=== PATIENT | female | born 1995 | race Caucasian/White ===

== ENCOUNTER 2017-11-10 21:04 | Emergency (ER) | payer OTHER ==
[2017-11-10 21:20] VITALS: TEMP 98.2; BMI 24.4
--- NOTE | 2017-11-10 21:22 | PDOC ---
Rapid Medical Evaluation Chief Complaint: Substance Abuse Time Seen by Provider: 11/10/17 21:16 Medical Evaluation: 11/10/17 21:17 c/o smoking crack cocaine on 11/04/2017 c/o feeling shaky since smoking. + chest pain patient seen at [facility] and [facility] PE: patient alert ox3/ A: chest pain P: cbc cmp troponin d-dimer patient to the ER for further management of care.
[2017-11-10 21:37] LABS: BASO % 0.7 % (0-2.0); EOS % 0.7 % (0-4.5); HEMOGLOBIN 12.9 GM/dL (10.7-15.3); LYMPH % 34.6 % (8-40); MCH 29.3 pg (25.7-33.7); MCHC 33.1 g/dl (32.0-36.0); MEAN CELL VOLUME 88.4 fl (80-96); MEAN PLT VOLUME 7.9 fl (7.5-11.1); MONO % 6.2 % (3.8-10.2); NEUT % 57.8 % (42.8-82.8); PLATELET COUNT 342 K/MM3 (134-434); RBC 4.41 M/mm3 (3.60-5.2); RDW 14.4 % (11.6-15.6); WHITE BLOOD COUNT 9.2 K/mm3 (4.0-10.0)
[2017-11-10 21:57] LABS: URINE APPEARANCE SLCLOUDY; URINE BILIRUBIN NEGATIVE (<2.0 mg/dL); URINE BLOOD NEGATIVE (NEGATIVE); URINE COLOR LTYELLOW; URINE GLUCOSE (UA) NEGATIVE (NEGATIVE); URINE KETONE NEGATIVE (NEGATIVE); URINE LEUK ESTERASE TRACE (NEGATIVE); URINE NITRITE NEGATIVE (NEGATIVE); URINE PROTEIN NEGATIVE (NEGATIVE); URINE UROBILINOGEN NEGATIVE mg/dL (0.2-1.0)
[2017-11-10 22:08] LABS: COCAINE, UR NEGATIVE ng/ml (CUTOFF=300); METHADONE, UR NEGATIVE ng/ml (CUTOFF=300); OPIATES, URI NEGATIVE ng/ml (CUTOFF=300); PHENCYCLIDINE,URINE NEGATIVE ng/ml (CUTOFF=25); URINE AMPHETAMINES NEGATIVE ng/ml (CUTOFF=500); URINE BARBITURATES NEGATIVE ng/ml (CUTOFF=200); URINE BENZODIAZEPINES NEGATIVE ng/ml (CUTOFF=200)
[2017-11-10 22:12] LABS: ALBUMIN 4.3 g/dl (3.4-5.0); ANION GAP 9 (8-16); BILIRUBIN,TOTAL 0.3 mg/dL (0.2-1.0); BLOOD UREA NITROGEN 12 mg/dL (7-18); CHLORIDE 102 mmol/L (98-107); CO2 26 mmol/L (21-32); CREATININE 0.9 mg/dL (0.55-1.02); GLUCOSE,RANDOM 87 mg/dL (74-106); POTASSIUM 3.8 mmol/L (3.5-5.1); SGOT/AST 19 U/L (15-37); SGPT/ALT 20 U/L (12-78); SODIUM 137 mmol/L (136-145); TOT PROT 8.2 g/dl (6.4-8.2)
[2017-11-10 22:14] LABS: ALK PHOS 92 U/L (45-117)
[2017-11-10] MEDS ORDERED: LORazepam 1 MG TABLET PO ONE (22:18)
[2017-11-10 22:34] LABS: EPI CELLS MODERATE /HPF (FEW); URINE BACTERIA RARE /hpf (NONE SEEN); URINE MUCUS RARE
[2017-11-10] MEDS ORDERED: LORazepam 0.5 MG TABLET ONE (22:39)
--- NOTE | 2017-11-10 23:17 | PDOC ---
Attending Attestation - Resident Resident Name: Hugo Trejo - ED Attending Attestation I have performed the following: I have examined & evaluated the patient, The case was reviewed & discussed with the resident, I agree w/resident's findings & plan, Exceptions are as noted - HPI HPI: 11/10/17 23:13 "The patient is a 22 year old female, with a significant past medical history of schizophrenia, polysubstance abuse, who presents to the emergency department with, chest heaviness, SOB and palpitations. The patient states that she smoked crack cocaine on 11/04, approximately 6 days ago. Immediately after, she began to feel a heaviness in her chest and shortness of breath. She has not smoked or used anything since then but reports intermittent recurrence of these symptoms. She denies F/C. Denies cough. Denies leg swelling or recent travel. Pt was previously evaluated at [facility] for the same symptoms and had negative work up. Pt denies SI/HI/AVH. She denies recent fevers, chills, headache or dizziness. She denies recent nausea, vomit, diarrhea or constipation. She denies recent dysuria, frequency, urgency or hematuria. Allergies: NKA Past surgical history: None reported. Social history: Smokes crack cocaine. - Physicial Exam PE: 11/10/17 23:16 """GENERAL: Awake, alert, and fully oriented, in no acute distress. HEAD: No signs of trauma EYES: PERRLA, EOMI, sclera anicteric, conjunctiva clear ENT: Auricles normal inspection, hearing grossly normal, nares patent, oropharynx clear without exudates. Moist mucosa NECK: Nontender, no stepoffs, Normal ROM, supple, no lymphadenopathy, JVD, or masses LUNGS: Breath sounds equal, clear to auscultation bilaterally. No wheezes, and no crackles HEART: Regular rate and rhythm, normal S1 and S2, no murmurs, rubs or gallops ABDOMEN: Soft, nontender, normoactive bowel sounds. No guarding, no rebound. No masses EXTREMITIES: Normal range of motion, no edema. No clubbing or cyanosis. No cords, erythema, or tenderness NEUROLOGICAL: Cranial nerves II through XII intact. 5/5 strength and sensation in all extremities, Normal speech, normal gait, normal cerebellar function SKIN: Warm, Dry, normal turgor, no rashes or lesions noted. """ - Medical Decision Making 11/10/17 23:16 22 F with intermittent palpitations, chest heaviness and SOB after smoking crack cocaine 6 days ago. Pt with no clinical signs of acute intoxication. Lung exam clear. EKG is nonischemic, making ACS unlikely. Pt with no clinical s/s DVT and no PE risk factors but will r/o PE with dimer. - Labs, dimer, trop - CXR - Trial of ativan 1mg PO Labs wnl, XR negative Pt reassessed - now feels much better Pt is well appearing, with normal vitals. Clinically stable for DC at this time. I discussed the physical exam findings, ancillary test results and final diagnoses with the patient. I answered all of the patient's questions. The patient was satisfied with the care received and felt comfortable with the discharge plan and treatment plan. The patient agrees to follow up with the primary care physician within 24-72 hours. <Rico Sims - Last Filed: 11/11/17 23:41> Attestations - Attestations 11/10/17 23:17 Documentation prepared by Tam Pérez, acting as medical housekeeper for Rico Sims MD. <Tam Pérez - Last Filed: 11/10/17 23:17>
--- NOTE | 2017-11-10 23:32 | PDOC ---
History of Present Illness - General History Source: Patient Exam Limitations: No Limitations - History of Present Illness Initial Comments: 11/11/17 00:46 22F with pmh of schizophrenia, polysubstance abuse, who presents to the emergency department with, chest heaviness, SOB and palpitations. The patient states that she smoked crack cocaine on 11/04, approximately 6 days ago. Immediately after, she began to feel a heaviness in her chest and shortness of breath. She has not smoked or used anything since then but reports intermittent recurrence of these symptoms. She denies F/C. Denies cough. Denies leg swelling or recent travel. Pt was evaluated on 11/06/17 at [place] but feels like nothing was done for her there. Pt denies SI/HI/AVH. She denies recent fevers, chills, headache or dizziness. She denies recent nausea, vomit, diarrhea or constipation. She denies recent dysuria, frequency, urgency or hematuria. Allergies: NKA Past surgical history: None reported. Social history: Smokes crack cocaine. <Hugo Trejo - Last Filed: 11/11/17 01:46> <Rico Sims - Last Filed: 11/11/17 01:55> - General Chief Complaint: Shortness of Breath Stated Complaint: CHEST PAIN/ S.O.B Time Seen by Provider: 11/10/17 21:16 Past History - Past Medical History COPD: No Psychiatric Problems: Yes (hasn't taken meds in some time) Other medical history: 2 P.C.'d at [facility] in past - Suicide/Smoking/Psychosocial Hx Smoking History: Current every day smoker Have you smoked in the past 12 months: Yes Information on smoking cessation initiated: No Drug/Substance Use Hx: Yes (crack/cocaine) <Hugo Trejo - Last Filed: 11/11/17 01:46> <Rico Sims - Last Filed: 11/11/17 01:55> - Past Medical History Allergies/Adverse Reactions: Allergies Allergy/AdvReac Type Severity Reaction Status Date / Time No Known Allergies Allergy Verified 11/10/17 21:20 Home Medications: Ambulatory Orders NK [No Known Home Medication] 11/10/17 Review of Systems - Review of Systems Able to Perform ROS?: Yes Is the patient limited Tajik proficient: No Constitutional: No: Symptoms Reported HEENTM: No: Symptoms Reported Respiratory: Yes: SOB at Rest Cardiac (ROS): No: Symptoms Reported ABD/GI: No: Symptoms Reported : No: Symptoms Reported Musculoskeletal: No: Symptoms Reported Integumentary: No: Symptoms Reported Neurological: No: Symptoms reported All Other Systems: Reviewed and Negative <Hugo Trejo - Last Filed: 11/11/17 01:46> *Physical Exam - Vital Signs Last Vital Signs Temp Pulse Resp BP Pulse Ox 98.2 F 95 H 16 115/76 100 11/10/17 21:18 11/10/17 21:18 11/10/17 21:18 11/10/17 21:18 11/10/17 21:18 - Physical Exam General Appearance: Yes: Nourished, Appropriately Dressed. No: Apparent Distress HEENT: positive: EOMI, SHAZIA, Normal ENT Inspection Respiratory/Chest: positive: Lungs Clear, Normal Breath Sounds. negative: Chest Tender, Respiratory Distress Cardiovascular: positive: Regular Rhythm, Regular Rate, S1, S2 Gastrointestinal/Abdominal: positive: Normal Bowel Sounds, Flat, Soft. negative : Tender Integumentary: positive: Warm Neurologic: positive: Fully Oriented, Alert, Normal Mood/Affect <Hugo Trejo - Last Filed: 11/11/17 01:46> - Vital Signs Last Vital Signs Temp Pulse Resp BP Pulse Ox 98.2 F 95 H 16 115/76 100 11/10/17 21:18 11/10/17 21:18 11/10/17 21:18 11/10/17 21:18 11/10/17 21:18 <Rico Sims - Last Filed: 11/11/17 01:55> ED Treatment Course - LABORATORY CBC & Chemistry Diagram: 11/10/17 21:27 11/10/17 21:27 - ADDITIONAL ORDERS Additional order review: Laboratory Results 11/10/17 11/10/17 11/10/17 21:36 21:36 21:28 D-Dimer Sodium Potassium Chloride Carbon Dioxide Anion Gap BUN Creatinine Creat Clearance w eGFR Random Glucose Calcium Total Bilirubin AST ALT Alkaline Phosphatase Creatine Kinase Troponin I Total Protein Albumin TSH 2.95 Serum , Qual Urine Color Ltyellow Urine Appearance Slcloudy Urine pH 7.0 Ur Specific [place] 1.017 Urine Protein Negative Urine Glucose (UA) Negative Urine Ketones Negative Urine Blood Negative Urine Nitrite Negative Urine Bilirubin Negative Urine Urobilinogen Negative Ur Leukocyte Esterase Trace Urine WBC (Auto) 3 Urine RBC (Auto) 16 Ur Epithelial Cells Moderate Urine Bacteria Rare Urine Mucus Rare Opiates Screen Negative Methadone Screen Negative Barbiturate Screen Negative Phencyclidine Screen Negative Ur Amphetamines Screen Negative MDMA (Ecstasy) Screen Negative Benzodiazepines Screen Negative Cocaine Screen Negative U Marijuana (THC) Screen Negative 11/10/17 11/10/17 11/10/17 21:27 21:27 21:27 D-Dimer 479 Sodium 137 Potassium 3.8 Chloride 102 Carbon Dioxide 26 Anion Gap 9 BUN 12 Creatinine 0.9 Creat Clearance w eGFR > 60 Random Glucose 87 Calcium 9.0 Total Bilirubin 0.3 AST 19 ALT 20 Alkaline Phosphatase 92 Creatine Kinase 96 Troponin I < 0.02 Total Protein 8.2 Albumin 4.3 TSH Serum , Qual Negative Urine Color Urine Appearance Urine pH Ur Specific [place] Urine Protein Urine Glucose (UA) Urine Ketones Urine Blood Urine Nitrite Urine Bilirubin Urine Urobilinogen Ur Leukocyte Esterase Urine WBC (Auto) Urine RBC (Auto) Ur Epithelial Cells Urine Bacteria Urine Mucus Opiates Screen Methadone Screen Barbiturate Screen Phencyclidine Screen Ur Amphetamines Screen MDMA (Ecstasy) Screen Benzodiazepines Screen Cocaine Screen U Marijuana (THC) Screen 11/10/17 21:27 RBC 4.41 MCV 88.4 MCHC 33.1 RDW 14.4 MPV 7.9 Neutrophils % 57.8 Lymphocytes % 34.6 Monocytes % 6.2 Eosinophils % 0.7 Basophils % 0.7 - Medications Given in the ED: ED Medications Discontinued Medications Generic Name Dose Route Start Last Admin Trade Name Misbahq PRN Reason Stop Dose Admin Lorazepam 1 mg 11/10/17 22:18 11/10/17 22:42 Ativan - PO 11/10/17 22:19 1 mg ONCE ONE Administration <Hugo Trejo - Last Filed: 11/11/17 01:46> - LABORATORY CBC & Chemistry Diagram: 11/10/17 21:27 11/10/17 21:27 - ADDITIONAL ORDERS Additional order review: Laboratory Results 11/10/17 11/10/17 11/10/17 21:36 21:36 21:28 D-Dimer Sodium Potassium Chloride Carbon Dioxide Anion Gap BUN Creatinine Creat Clearance w eGFR Random Glucose Calcium Total Bilirubin AST ALT Alkaline Phosphatase Creatine Kinase Troponin I Total Protein Albumin TSH 2.95 Serum , Qual Urine Color Ltyellow Urine Appearance Slcloudy Urine pH 7.0 Ur Specific [place] 1.017 Urine Protein Negative Urine Glucose (UA) Negative Urine Ketones Negative Urine Blood Negative Urine Nitrite Negative Urine Bilirubin Negative Urine Urobilinogen Negative Ur Leukocyte Esterase Trace Urine WBC (Auto) 3 Urine RBC (Auto) 16 Ur Epithelial Cells Moderate Urine Bacteria Rare Urine Mucus Rare Opiates Screen Negative Methadone Screen Negative Barbiturate Screen Negative Phencyclidine Screen Negative Ur Amphetamines Screen Negative MDMA (Ecstasy) Screen Negative Benzodiazepines Screen Negative Cocaine Screen Negative U Marijuana (THC) Screen Negative 11/10/17 11/10/17 11/10/17 21:27 21:27 21:27 D-Dimer 479 Sodium 137 Potassium 3.8 Chloride 102 Carbon Dioxide 26 Anion Gap 9 BUN 12 Creatinine 0.9 Creat Clearance w eGFR > 60 Random Glucose 87 Calcium 9.0 Total Bilirubin 0.3 AST 19 ALT 20 Alkaline Phosphatase 92 Creatine Kinase 96 Troponin I < 0.02 Total Protein 8.2 Albumin 4.3 TSH Serum , Qual Negative Urine Color Urine Appearance Urine pH Ur Specific [place] Urine Protein Urine Glucose (UA) Urine Ketones Urine Blood Urine Nitrite Urine Bilirubin Urine Urobilinogen Ur Leukocyte Esterase Urine WBC (Auto) Urine RBC (Auto) Ur Epithelial Cells Urine Bacteria Urine Mucus Opiates Screen Methadone Screen Barbiturate Screen Phencyclidine Screen Ur Amphetamines Screen MDMA (Ecstasy) Screen Benzodiazepines Screen Cocaine Screen U Marijuana (THC) Screen 11/10/17 21:27 RBC 4.41 MCV 88.4 MCHC 33.1 RDW 14.4 MPV 7.9 Neutrophils % 57.8 Lymphocytes % 34.6 Monocytes % 6.2 Eosinophils % 0.7 Basophils % 0.7 - RADIOLOGY Radiology Studies Ordered: Category Date Time Status HEAD CT WITHOUT CONTRAST [CT] Stat CT Scan 11/11/17 01:00 Taken - Medications Given in the ED: ED Medications Discontinued Medications Generic Name Dose Route Start Last Admin Trade Name Misbahq PRN Reason Stop Dose Admin Lorazepam 1 mg 11/10/17 22:18 11/10/17 22:42 Ativan - PO 11/10/17 22:19 1 mg ONCE ONE Administration <Ou,Rico - Last Filed: 11/11/17 01:55> Medical Decision Making - Medical Decision Making 11/11/17 00:59 22 F with intermittent palpitations, chest heaviness and SOB after smoking crack cocaine 6 days ago. Pt with no clinical signs of acute intoxication. Lung exam clear. EKG is nonischemic, making ACS unlikely. Pt with no clinical s/s DVT and no PE risk factors but will r/o PE with dimer. - Labs, dimer, trop - CXR - Trial of ativan 1mg PO <Hugo Trejo - Last Filed: 11/11/17 01:46> *DC/Admit/Observation/Transfer - Discharge Dispostion Decision to Admit order: No <Hugo Trejo - Last Filed: 11/11/17 01:46> <Rico Sims - Last Filed: 11/11/17 01:55> Diagnosis at time of Disposition: Shortness of breath - Discharge Dispostion Disposition: HOME Condition at time of disposition: Improved - Referrals Referrals: Jered Garcia MD [Staff Physician] - Baudilio Savage MD, MD [Staff Physician] - - Patient Instructions Printed Discharge Instructions: DI for Shortness of Breath Additional Instructions: Call the numbers provided to make follow up appointments with neurology and pulmonary clinics. Come back to the ER for any new, concerning or worsening symptom.
[2017-11-11 02:05] VITALS: BP 116/77; PULSE 75
[2017-11-11] MEDS ORDERED: IBUPROFEN 400 MG TABLET (FP) PO ONE (02:16)
--- NOTE | 2017-11-11 11:29 | EKG ---
Test Reason : Blood Pressure : / mmHG Vent. Rate : 087 BPM Atrial Rate : 087 BPM P-R Int : 144 ms QRS Dur : 072 ms QT Int : 346 ms P-R-T Axes : 066 057 031 degrees QTc Int : 416 ms NORMAL SINUS RHYTHM NORMAL ECG NO PREVIOUS ECGS AVAILABLE Confirmed by SHABBIR BANEGAS MD ([id number]) on 11/11/2017 11:28:56 AM Referred By: Confirmed By:SHABBIR BANEGAS MD
== END 2017-11-11 02:23 | disposition home or self-care (01) ==
LOC: JER 21:04
DX: R06.02 Shortness of breath (principal); F20.9 Schizophrenia, unspecified; F19.10 Other psychoactive substance abuse, uncomplicated; F17.210 Nicotine dependence, cigarettes, uncomplicated; Z91.19 Patient's noncompliance with other medical treatment and regimen
CPT/HCPCS: 36415; 70450-TC; 71046-TC-FY; 80053; 80307; 81003; 81015; 82550; 84443; 84484; 84703; 85025; 85379; 93005; 93010; 99282-25

== ENCOUNTER 2017-11-25 19:57 | Emergency (ER) | payer OTHER ==
--- NOTE | 2017-11-25 20:05 | PDOC ---
Rapid Medical Evaluation Chief Complaint: Palpitations Time Seen by Provider: 11/25/17 20:01 Medical Evaluation: Allergies Allergy/AdvReac Type Severity Reaction Status Date / Time No Known Allergies Allergy Verified 11/22/17 12:52 11/25/17 20:02 c/o palpitations 2 weeks ago when she smoked crack. "left side of chest is numb , i think my heart is going to stop." patient reports smoking 8-9 bags of smoke. patient requested HIV test during this visit PE: patient alert talking in full sentences. BS clear, s1 s2 A: palpitations; cocaine abuse P; cbc cmp ekg serum , chest PA and Lateral patient to ER for further management of care. Discharge Disposition - Diagnosis Palpitations, Cocaine abuse - Referrals - Patient Instructions - Post Discharge Activity
[2017-11-25 20:08] VITALS: BP 105/63; PULSE 95; TEMP 99; BMI 24.4
--- NOTE | 2017-11-25 20:44 | PDOC ---
History of Present Illness - General History Source: Patient <VillanataliTylor - Last Filed: 11/25/17 20:45> - General History Source: Patient, Old Records Exam Limitations: No Limitations - History of Present Illness Initial Comments: 11/25/17 20:51 The patient is a 22 year old female with no significant past medical history who presents with shortness of breath, chest tightness, and wheezing for one month. The patient states that one month ago she smoked crack and has subsequently been experiencing her current symptoms. She reports associated dehydration, weakness, and dizziness. She reports that she has present to several hospitals and has had lab work, CT scans, and radiology done and all reports were normal. The patient was instructed to follow up with a specialist and has not. She reports that she was given an albuterol inhaler but has not used it. The patient is requesting IV hydrating. She denies smoking crack at any point since the onset of her symptoms. <Arben Brennan - Last Filed: 11/25/17 20:52> - General Chief Complaint: Shortness of Breath Stated Complaint: SHORT OF BREATH Time Seen by Provider: 11/25/17 20:01 Past History - Past Medical History Anemia: No Asthma: No Cancer: No Cardiac Disorders: No CVA: No COPD: No CHF: No Dementia: No Diabetes: No GI Disorders: No Disorders: No HTN: No Hypercholesterolemia: No Liver Disease: No Psychiatric Problems: Yes (hasn't taken meds in some time) Seizures: No Thyroid Disease: No - Suicide/Smoking/Psychosocial Hx Smoking History: Current every day smoker Have you smoked in the past 12 months: Yes Number of Cigarettes Smoked Daily: 4 Information on smoking cessation initiated: No 'Breaking Loose' booklet given: 11/14/17 Hx Alcohol Use: No Drug/Substance Use Hx: Yes Substance Use Type: None <Tylor Florian - Last Filed: 11/25/17 20:45> <Arben Brennan - Last Filed: 11/25/17 20:52> - Past Medical History Allergies/Adverse Reactions: Allergies Allergy/AdvReac Type Severity Reaction Status Date / Time No Known Allergies Allergy Verified 11/25/17 20:08 Home Medications: Ambulatory Orders Albuterol Sulfate Inhaler - [Ventolin HFA Inhaler -] 1 - 2 inh PO Q4H PRN #1 inhaler 11/22/17 Review of Systems - Review of Systems Able to Perform ROS?: Yes Comments:: 11/25/17 20:51 CONSTITUTIONAL: (+) Weakness, dizziness, dehydration Absent: fever, no chills, no fatigue EYES: Absent: visual changes ENT: Absent: ear pain, no sore throat CARDIOVASCULAR: (+) Chest tightness Absent: no palpitations RESPIRATORY: (+) Wheezing, shortness of breath Absent: cough GI: Absent: abdominal pain, no nausea, no vomiting, no constipation, no diarrhea GENITOURINARY: Absent: dysuria, no frequency, no hematuria MUSCULOSKELETAL: Absent: back pain, no arthralgia, no myalgia SKIN: Absent: rash <Arben Brennan - Last Filed: 11/25/17 20:52> *Physical Exam - Vital Signs Last Vital Signs Temp Pulse Resp BP Pulse Ox 99.0 F 95 H 18 105/63 100 11/25/17 20:04 11/25/17 20:04 11/25/17 20:04 11/25/17 20:04 11/25/17 20:04 <Tylor Florian - Last Filed: 11/25/17 20:45> - Vital Signs Last Vital Signs Temp Pulse Resp BP Pulse Ox 99.0 F 95 H 18 105/63 100 11/25/17 20:04 11/25/17 20:04 11/25/17 20:04 11/25/17 20:04 11/25/17 20:04 - Physical Exam Comments: 11/25/17 20:52 GENERAL: Well-appearing, well-nourished. No apparent distress. Does not appear clinically dehydrated HEENT: Normocephalic, atraumatic. PERRL, EOM intact. CARDIOVASCULAR: Normal S1, S2. Regular rate and rhythm. PULMONARY: Clear to auscultation bilaterally. ABDOMEN: Soft, non-distended, non-tender. EXTREMITIES: Normal ROM in all four extremities. No gross deformities. SKIN: Warm, dry. No rash NEUROLOGICAL: No focal neurological deficits. <Arben Brennan - Last Filed: 11/25/17 20:52> Medical Decision Making - Medical Decision Making 11/25/17 20:49 Dr. Florian: The scribe's documentation has been prepared under my direction and personally reviewed by me in its entirery. I confirm that the note above accurately reflects all work, treatment, procedures, and medical decision making performed by me. <Tylor Florian - Last Filed: 11/25/17 20:45> *DC/Admit/Observation/Transfer - Discharge Dispostion Decision to Admit order: No <Tylor Florian - Last Filed: 11/25/17 20:45> - Attestations Scribe Attestion: 11/25/17 20:52 Documentation prepared by Arben Brennan, acting as medical supply technician for Tylor Florian DO. <Abren Brennan - Last Filed: 11/25/17 20:52> Diagnosis at time of Disposition: Palpitations, Cocaine abuse, Shortness of breath - Discharge Dispostion Disposition: HOME Condition at time of disposition: Stable - Referrals Referrals: Rafael Davis MD [Staff Physician] - Stan Bean MD [Staff Physician] - Baudilio Savage MD, MD [Staff Physician] - - Patient Instructions Printed Discharge Instructions: DI for Shortness of Breath, DI for Palpitations Additional Instructions: continue using the inhaler you have been prescribed. Follow up with the doctors referred to you since previous studies you have stated are all negative and you don't want repeated. Avoid smoking at all costs
== END 2017-11-25 21:23 | disposition home or self-care (01) ==
LOC: JER 19:57
DX: F14.10 Cocaine abuse, uncomplicated (principal); R00.2 Palpitations
CPT/HCPCS: 99281-25